=== PATIENT | female | born 1965 | race Caucasian/White ===

== ENCOUNTER 2018-02-05 15:00 | Inpatient (IN) | payer OTHER ==
[~2018-02-05] VITALS: Ht 165.1 cm; Wt 98.5 kg
--- OUTSIDE RECORDS SUMMARY | 2018-02-05 15:03 | XMS REPORT | Clinical Summary ---
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 Disp. Refills Start End Date Status Date levothyroxine (SYNTHROID, TK 1 T PO QD 3 01/08/20 Active LEVOXYL) 200 mcg tablet 17 urea (CARMOL) 40 % cream ALPA BID PRF THICK OR 5 01/23/20 Active SCALY SKIN ON FEET OR 17 HANDS ferrous sulfate 325 (65 TAKE 1 TABLET BY MOUTH Active FE) MG tablet EVERY DAY FEXOFENADINE HCL (MILLIE Take by mouth as needed. Active ORAL) CRANBERRY FRUIT Take by mouth. Active CONCENTRATE (AZO CRANBERRY ORAL) tolterodine LA (DETROL Take 1 capsule (2 mg 30 capsule 11 02/17/20 02/17/20 Active LA) 2 MG 24 hr capsule total) by mouth daily. 17 18 levoFLOXacin (LEVAQUIN) Take 1 tablet (500 mg 7 tablet 0 02/17/20 Discontin 500 MG tablet total) by mouth daily for 17 17 ued 7 days. predniSONE (DELTASONE) 20 Take 1 tablet (20 mg 6 tablet 0 02/17/20 02/20/20 mg tablet total) by mouth 2 (two) 17 17 times a day for 3 days. fluconazole (DIFLUCAN) Take 1 tablet (150 mg 2 tablet 0 02/17/20 150 MG tablet total) by mouth daily for 17 17 2 doses. cefdinir (OMNICEF) 300 MG Take 1 capsule (300 mg 20 capsule 0 03/01/20 capsule total) by mouth 2 (two) 17 17 times a day for 10 days. Active Problems Problem Noted Date Acquired hypothyroidism 03/11/2016 Adrenal adenoma 03/11/2016 Anemia 03/11/2016 Chronic kidney disease, stage I 03/11/2016 Diabetes mellitus 03/11/2016 Essential hypertension 03/11/2016 Fatigue 03/11/2016 Lupus erythematosus 03/11/2016 Urinary incontinence 03/11/2016 Bilateral lumbar radiculopathy Encounters Date Type Specialty Care Team Description 03/16/2017 Refill Internal Medicine Celso Chung MD 03/03/2017 Office Visit Orthopedic Surgery Rainer Canchola MD Acute bilateral low back pain, with sciatica presence unspecified (Primary Dx) 02/19/2017 [facility] Rainer Canchola MD Bilateral sciatica Encounter 02/19/2017 Office Visit Orthopedic Surgery Rainer Canchola MD Bilateral sciatica (Primary Dx) 02/19/2017 Refill Internal Medicine Adelina Phillips MA 02/19/2017 Procedure Pass Radiology 02/17/2017 Telephone Internal Medicine Celso Chung MD 02/16/2017 Office Visit Internal Medicine Celso Chung MD Type 2 diabetes mellitus without complication, with long-term current use of insulin (Primary Dx); Essential hypertension; Lupus erythematosus; Bilateral lumbar radiculopathy; Cough; Hypothyroidism, unspecified type; Acute sinusitis, unspecified 02/12/2017 [facility] Rainer Canchola MD Neuropathy Encounter Caio Coleman MD 02/06/2017 [facility] Rainer Canchola MD Spinal stenosis of Encounter thoracic region 02/06/2017 [facility] Rainer Canchola MD Stenosis of cervical Encounter spine 02/03/2017 Procedure Pass Radiology 02/03/2017 Procedure Pass Radiology after 02/04/2017 Family History Medical History Relation Name Comments Broken bones Father Cancer Maternal Aunt Diabetes Maternal Grandfather Rheumatologic disease Maternal Grandmother Cancer Maternal Uncle Anesthesia problems Mother Broken bones Mother Cancer Mother Rheumatologic disease Mother Cancer Paternal Aunt Rheumatologic disease Paternal Aunt Diabetes Paternal Grandfather Rheumatologic disease Sister Relation Name Status Comments Father Maternal Aunt Maternal Grandfather Maternal Grandmother Maternal Uncle Mother Paternal Aunt Paternal Aunt Paternal Grandfather Sister Social History Tobacco Use Types Packs/Day Years Used Date Never Smoker Alcohol Use Drinks/Week oz/Week Comments No Sex Assigned at Date Recorded Not on file Last Filed Vital Signs Vital Sign Reading Time Taken Blood Pressure 124/77 02/16/2017 11:11 AM CDT Pulse 76 02/16/2017 11:11 AM CDT Temperature 36.9 C (98.4 F) 02/16/2017 11:11 AM CDT Respiratory Rate 18 02/06/2017 1:04 PM CDT Oxygen Saturation 98% 02/16/2017 11:11 AM CDT Inhaled Oxygen - - Concentration Weight 91.6 kg (202 lb) 02/16/2017 11:11 AM CDT Height 165.1 cm (5' 5") 02/16/2017 11:11 AM CDT Body Mass Index 33.61 02/16/2017 11:11 AM CDT Plan of Treatment Health Maintenance Due Date Last Done Comments FOOT EXAM 1976 OPHTHALMOLOGY EXAM 1976 PAP SMEAR 1987 COLONOSCOPY 2016 MAMMOGRAM 2016 INFLUENZA VACCINE 06/23/2017 Procedures Procedure Name Priority Date/Time Associated Diagnosis Comments EMG Routine 02/12/2017 Neuropathy Results for this 12:39 PM CDT procedure are in the results section. after 02/04/2017 Results * MRI Lumbar Spine Wo Contrast (02/19/2017 12:51 PM) Specimen Performing Laboratory [address] [address] Narrative EXAMINATION:MRI LUMBAR SPINE WO CONTRAST CLINICAL HISTORY:Sciatica Order diagnosis - Sciaticaright side Sciaticaleft side COMPARISON:None. FINDINGS: Lowermost functional disc space is assumed to be L5-S1. Lumbar spine alignement is within normal limits No suspicious focal bone marrow lesions. Visualized spinal cord is normal in appearance. Mild multilevel disc space narrowing and endplate degenerative changes. L1-2: No canal or foraminal narrowing. L2-3: Posterior disc bulge and mild facet arthropathy. No canal or foraminal narrowing. L3-4: Posterior disc bulge and facet arthropathy causes mild narrowing of the left foramen. No canal narrowing. Left lateral osteophyte disc complex effaces the fat adjacent exited left L3 nerve root. L4-5: Posterior disc bulge and bilateral facet arthropathy causes mild narrowing of the left foramen. No canal narrowing. L5-S1: Right lateral disc bulge effaces the fat adjacent the exited right L5 nerve root. Bilateral facet arthropathy. There is mild narrowing of the right foramen. No canal narrowing IMPRESSION: No canal narrowing the lumbar spine. Mild multilevel spondylotic foraminal narrowing. [id number] Procedure Note Hm Interface, Radiology Results 02/19/2017 2:32 PM CDT EXAMINATION: MRI LUMBAR SPINE WO CONTRAST CLINICAL HISTORY: Sciatica Order diagnosis - Sciatica right side Sciatica left side COMPARISON: None. FINDINGS: Lowermost functional disc space is assumed to be L5-S1. Lumbar spine alignement is within normal limits No suspicious focal bone marrow lesions. Visualized spinal cord is normal in appearance. Mild multilevel disc space narrowing and endplate degenerative changes. L1-2: No canal or foraminal narrowing. L2-3: Posterior disc bulge and mild facet arthropathy. No canal or foraminal narrowing. L3-4: Posterior disc bulge and facet arthropathy causes mild narrowing of the left foramen. No canal narrowing. Left lateral osteophyte disc complex effaces the fat adjacent exited left L3 nerve root. L4-5: Posterior disc bulge and bilateral facet arthropathy causes mild narrowing of the left foramen. No canal narrowing. L5-S1: Right lateral disc bulge effaces the fat adjacent the exited right L5 nerve root. Bilateral facet arthropathy. There is mild narrowing of the right foramen. No canal narrowing IMPRESSION: No canal narrowing the lumbar spine. Mild multilevel spondylotic foraminal narrowing. [id number] * DNA (DS) Ab, crithidia, IFA w/refl (02/16/2017 12:27 PM) Component Value Ref Range DNA Ab (ds) Crithidia, NEGATIVE NEGATIVE IFA Specimen Performing Laboratory [facility] * ALMA SCREEN W IFA W REFLEX TO TITER (02/16/2017 12:27 PM) Component Value Ref Range ALMA screen POSITIVE (A) NEGATIVE Comment: ALMA IFA is a first line screen for detecting the presence of up to approximately 150 autoantibodies in various autoimmune diseases. A positive ALMA IFA result is suggestive of autoimmune disease and reflexes to titer and pattern. Further laboratory testing may be considered if clinically indicated. Visit Physician FAQs for interpretation of all antibodies in the [place], prevalence, and association with diseases at http://education.tipple.me/ faq/YTO465 ALMA pattern HOMOGENEOUS (A) Comment: Homogeneous pattern is associated with systemic lupus erythematosus (SLE), drug induced lupus and juvenile idiopathic arthritis. ALMA titer 1:320 (H) titer Comment: Reference Range <1:40 Negative 1:40-1:80 L ow Antibody Level >1:80 Elevated Antibody Level Specimen Performing Laboratory [facility] * Vitamin D 25 hydroxy level (02/16/2017 12:27 PM) Component Value Ref Range Vitamin D, 25-hydroxy 20 (L) 30 - 100 ng/mL Comment: Vitamin D Status 25-OH Vitamin D: Deficiency: <20 ng/mL Insufficiency: 20 - 29 ng/mL Optimal: > or=30 ng/mL For 25-OH Vitamin D testing on patients on D2-supplementation and patients for whom quantitation of D2 and D3 fractions is required, the QuestAssureD(TM) 25-OH VIT D, (D2,D3), LC/MS/MS is recommended: order code 55376 (patients >2yrs). For more information on this test, go to: http://education.Centice/faq/KEL274 (This link is being provided for informational/educational purposes only.) Specimen Performing Laboratory [facility] * Urinalysis, automated with microscopy (02/16/2017 12:27 PM) Component Value Ref Range Color, UA YELLOW YELLOW Appearance CLOUDY (A) CLEAR Specific gravity, urine 1.017 1.001 - 1.035 pH, urine 6.5 5.0 - 8.0 Glucose, urine NEGATIVE NEGATIVE Bilirubin, UA NEGATIVE NEGATIVE Ketones, UA NEGATIVE NEGATIVE Occult blood, urine 2+ (A) NEGATIVE Protein, UA 1+ (A) NEGATIVE Nitrite, UA NEGATIVE NEGATIVE Leukocyte esterase, UA 3+ (A) NEGATIVE WBC, UA > OR=60 (A) < OR=5 /HPF RBC, UA 0-2 < OR=2 /HPF Squamous epithelial NONE SEEN < OR=5 /HPF cells, UA Bacteria, UA NONE SEEN NONE SEEN /HPF Hyaline casts, UA NONE SEEN NONE SEEN /LPF Specimen Performing Laboratory U[facility] * Sedimentation rate (02/16/2017 12:27 PM) Component Value Ref Range Sedimentation rate 27 < OR=30 mm/h Specimen Performing Laboratory [facility] * CBC with platelet and differential (02/16/2017 12:27 PM) Component Value Ref Range WBC 11.7 (H) 3.8 - 10.8 Thousand/uL RBC 4.97 3.80 - 5.10 Million/uL HGB 12.9 11.7 - 15.5 g/dL HCT 38.7 35.0 - 45.0 % MCV 77.9 (L) 80.0 - 100.0 fL MCH 26.0 (L) 27.0 - 33.0 pg MCHC 33.4 32.0 - 36.0 g/dL RDW 17.8 (H) 11.0 - 15.0 % Platelet count 285 140 - 400 Thousand/uL MPV 8.6 7.5 - 12.5 fL Neutrophils, absolute 8,939 (H) 1,500 - 7,800 cells/uL Lymphocytes, absolute 1,942 850 - 3,900 cells/uL Monocytes, absolute 632 200 - 950 cells/uL Eosinophils, absolute 140 15 - 500 cells/uL Basophils, absolute 47 0 - 200 cells/uL Neutrophils 76.4 % Lymphocytes 16.6 % Monocytes 5.4 % Eosinophils 1.2 % Basophils + RC 0.4 % Specimen Performing Laboratory [facility] * T3, free (02/16/2017 12:27 PM) Component Value Ref Range T3, free 2.8 2.3 - 4.2 pg/mL Specimen Performing Laboratory [facility] * Thyroid stimulating hormone (02/16/2017 12:27 PM) Component Value Ref Range TSH 0.14 (L) mIU/L Comment: Reference Range > or=20 Years 0.40-4.50 Ranges First trimester 0.26-2.66 Second trimester 0.55-2.73 Third trimester 0.43-2.91 Specimen Performing Laboratory [facility] * T4, free (02/16/2017 12:27 PM) Component Value Ref Range T4, free 1.5 0.8 - 1.8 ng/dL Specimen Performing Laboratory [facility] * Hemoglobin A1c (02/16/2017 12:27 PM) Component Value Ref Range Hemoglobin A1C 6.0 (H) <5.7 % of total Hgb Comment: For someone without known diabetes, a hemoglobin A1c value between 5.7% and 6.4% is consistent with prediabetes and should be confirmed with a follow-up test. For someone with known diabetes, a value <7% indicates that their diabetes is well controlled. A1c targets should be individualized based on duration of diabetes, age, comorbid conditions, and other considerations. This assay result is consistent with an increased risk of diabetes. Currently, no consensus exists regarding use of hemoglobin A1c for diagnosis of diabetes for children. Specimen Performing Laboratory [facility] * Vitamin B12 level (02/16/2017 12:27 PM) Component Value Ref Range Vitamin B12 630 200 - 1,100 pg/mL Specimen Performing Laboratory [facility] * Lipid panel (02/16/2017 12:27 PM) Component Value Ref Range Cholesterol, total 193 125 - 200 mg/dL HDL cholesterol 33 (L) > OR=46 mg/dL Triglycerides 187 (H) <150 mg/dL LDL cholesterol 123 <130 mg/dL (calc) calculated Comment: Desirable range <100 mg/dL for patients with CHD or diabetes and <70 mg/dL for diabetic patients with known heart disease. Cholesterol/HDL ratio 5.8 (H) < OR=5.0 (calc) Non-HDL cholesterol 160 (H) mg/dL (calc) Comment: Target for non-HDL cholesterol is 30 mg/dL higher than LDL cholesterol target. Specimen Performing Laboratory [facility] * Comprehensive metabolic panel (02/16/2017 12:27 PM) Component Value Ref Range Glucose 116 (H) 65 - 99 mg/dL Comment: Fasting reference interval BUN, whole blood 12 7 - 25 mg/dL Creatinine 0.63 0.50 - 1.05 mg/dL Comment: For patients >49 years of age, the reference limit for Creatinine is approximately 13% higher for people identified as -Mauritanian. EGFR Non-Afr. Mauritanian 104 > OR=60 mL/min/1.73m2 EGFR 120 > OR=60 mL/min/1.73m2 BUN/creatinine ratio NOT APPLICABLE 6 - 22 (calc) Sodium 135 135 - 146 mmol/L Potassium 3.9 3.5 - 5.3 mmol/L Chloride 98 98 - 110 mmol/L CO2 27 20 - 31 mmol/L Calcium 9.4 8.6 - 10.4 mg/dL Protein 8.0 6.1 - 8.1 g/dL Albumin, S 4.5 3.6 - 5.1 g/dL Globulin, total 3.5 1.9 - 3.7 g/dL (calc) Albumin/globulin ratio 1.3 1.0 - 2.5 (calc) Total bilirubin 0.4 0.2 - 1.2 mg/dL Alkaline phosphatase 74 33 - 130 U/L AST 16 10 - 35 U/L ALT 19 6 - 29 U/L Specimen Performing Laboratory [facility] * EMG general request (02/12/2017 12:39 PM) Impressions Ms. Guo complains of discomfort in her lower thoracic spine, lumbar pain, numbness in her feet (left more than right) and is being evaluated for lumbar radiculopathy and neuropathy. 1) Peroneal and tibial motor latencies, amplitudes and velocities are bilaterally normal. 2) Sural sensory responses are bilaterally normal. 3) Bilateral H Reflex Responses are normal. 4) Intramuscular recordings of the legs suggest minimal chronic bilateral L5 denervation. The study suggests minimal bilateral chronic L5 radiculopathy and does not electrodiagnostically suggest neuropathy. Caio Coleman M.D. Narrative NERVE CONDUCTION AND ELECTROMYOGRAPHY REPORT [facility], [facility] Medicine [facility]-[address]; [place], [place] [address]; Name: Radha Guo Date of Procedure: February 12, 2017Location: Sex: Female Date of :67 Referring Physician: Rainer Canchola M.D. FAX: Patient is 5 5; 197 lbs; RL 30.7 C; LL 30.1 C Nerve Conduction(Latencies in msec, Amplitudes uV, Distance cm, Velocity M/Sec) Right Motor Nerves Dist. Lat. Prox lat. D. amp. P. Amp.Dist. Velocity Right Peroneal EDB 3.79.87.3 6.429.3 48.1 Right Tibial3.310.88.2 6.333.0 44.0 Right Sensory Nerves Dist. Lat. Prox lat. Dist. amp. Prox Amp. Distance Velocity Right Sural3.9 10.6 14.0 Left Motor Nerves Dist. Lat. Prox lat. D. amp. P. Amp.Dist. Velocity Left Peroneal EDB 3.810.57.9 6.031.0 46.5 Left Tibial3.39.88.5 7.032.5 50.0 Left Sensory Nerves Dist. Lat. Prox lat. Dist. amp. Prox Amp. Distance Velocity Left Sural3.9 10.6 14.0 Right Soleus (H Reflex Response Latency): 33.5 msec Left Soleus (H Reflex Response Latency):33.5 msec Electromyography (Motor Unit in mV; H=High; L=Low; P=Polyphasic; NS=Non-specific) Right LegFibs. Pos. Waves Fasc. PolyphasiaMotor Units Recruitment Vas. Medialiswnl wnlwnl wnlwnlwnl Ant. Tibialiswnl wnlwnl 20HPwnlNS Peroneus Longus wnl wnlwnl 20HPwnlNS Gastronemiuswnl wnlwnl wnlwnlwnl Ext. Dig. Brevis wnl wnlwnl 20HPwnl-1 Left LegFibs. Pos. Waves Fasc. PolyphasiaMotor Units Recruitment Vas. Medialiswnl wnlwnl wnlwnlwnl Ant. Tibialiswnl wnlwnl 20HPwnlNS Peroneus Longus wnl wnlwnl 20HPwnlNS Gastronemiuswnl wnlwnl wnlwnlwnl Ext. Dig. Brevis wnl wnlwnl 20HPwnl-1 * MRI Thoracic Spine Wo Contrast (02/06/2017 2:16 PM) Specimen Performing Laboratory [facility] [address] [place] [id number] Narrative EXAMINATION:MRI THORACIC SPINE WO CONTRAST CLINICAL HISTORY:[facility] Order diagnosis - Spinal stenosisthoracic region COMPARISON:None. FINDINGS: There are no areas of abnormal signal intensity in the cord or subarachnoid space. There is no significant canal or foramen stenosis from degenerative changes. There is mild decreased T2 signal in some of the mid thoracic discs with mild disc space narrowing. There is mild inward concavity of a few thoracic endplates. There is no evidence of acute thoracic spine fracture. The study was not performed for proper imaging of soft tissue structures in the chest, lower neck and upper abdomen. IMPRESSION: Degenerative changes without significant canal or foramen stenosis in the thoracic region. [facility]-[id number] Procedure Note Interface, Radiology Results Incoming - 02/06/2017 4:00 PM CDT EXAMINATION: MRI THORACIC SPINE WO CONTRAST CLINICAL HISTORY: [facility] Order diagnosis - Spinal stenosis thoracic region COMPARISON: None. FINDINGS: There are no areas of abnormal signal intensity in the cord or subarachnoid space. There is no significant canal or foramen stenosis from degenerative changes. There is mild decreased T2 signal in some of the mid thoracic discs with mild disc space narrowing. There is mild inward concavity of a few thoracic endplates. There is no evidence of acute thoracic spine fracture. The study was not performed for proper imaging of soft tissue structures in the chest, lower neck and upper abdomen. IMPRESSION: Degenerative changes without significant canal or foramen stenosis in the thoracic region. [facility]-[id number] * MRI Cervical Spine Wo Contrast (02/06/2017 1:55 PM) Specimen Performing Laboratory [facility] [address] [place] [address] Narrative EXAMINATION:MRI CERVICAL SPINE WO CONTRAST CLINICAL HISTORY:[facility] Order diagnosis - Spinal stenosiscervical region COMPARISON:None. FINDINGS: C1-2 and C2-3: No significant abnormality. C3-4: No significant abnormality. C4-5: There is minimal spondylosis without stenosis. C5-6: There is mild spondylosis with a broad dorsal disc bulge/protrusion greatest laterally bilaterally. There is no canal stenosis or cord compression. In fact the patient has a large cervical spinal canal. There is no foraminal stenosis. C6-7: There is minimal spondylosis and minimal central disc protrusion greater towards the right. There is no stenosis. C7-T1: No significant abnormality. There is no signal abnormality demonstrated in the spinal cord and no evidence of Chiari malformation. IMPRESSION: Mild cervical spondylosis. There is no spinal canal or foraminal stenosis. There is no evidence of a spinal cord lesion. [facility]-[id number] Procedure Note Interface, Radiology Results Incoming - 02/06/2017 3:42 PM CDT EXAMINATION: MRI CERVICAL SPINE WO CONTRAST CLINICAL HISTORY: [facility] Order diagnosis - Spinal stenosis cervical region COMPARISON: None. FINDINGS: C1-2 and C2-3: No significant abnormality. C3-4: No significant abnormality. C4-5: There is minimal spondylosis without stenosis. C5-6: There is mild spondylosis with a broad dorsal disc bulge/protrusion greatest laterally bilaterally. There is no canal stenosis or cord compression. In fact the patient has a large cervical spinal canal. There is no foraminal stenosis. C6-7: There is minimal spondylosis and minimal central disc protrusion greater towards the right. There is no stenosis. C7-T1: No significant abnormality. There is no signal abnormality demonstrated in the spinal cord and no evidence of Chiari malformation. IMPRESSION: Mild cervical spondylosis. There is no spinal canal or foraminal stenosis. There is no evidence of a spinal cord lesion. [facility]-[id number] after 02/04/2017 Insurance Payer Benefit Subscriber ID Type Phone Address Plan / Group AETNA AETNA xxxxxxxxxx HMO HMO,POS,EP [place], [place] [address]
[2018-02-05 15:55] LABS: BILIRUBIN,URINE NEGATIVE (NEGATIVE); CLARITY,URINE HAZY (CLEAR); KETONES,URINE NEGATIVE (NEGATIVE); LEUKOCYTE ESTERASE ,URINE 2+ (NEGATIVE); URINE UROBILINOGEN 0.2 mg/dL (0.2 - 1)
[2018-02-05 15:58] LABS: COLOR,URINE STRAW (YELLOW); NITRITE,URINE POSITIVE (NEGATIVE); PROTEIN,URINE DIPSTICK 1+ (NEGATIVE)
[2018-02-05 16:11] LABS: BACTERIA,URINE MANY /HPF; EPITHELIAL CELLS,URINE RARE /LPF; RBC,URINE 21-50 /HPF (0-5); YEAST,URINE FEW
[2018-02-05 16:17] LABS: BASOPHILS % 0.3 % (0.0-1.0); EOSINOPHILS # (AUTO) 0.1 (0.0-0.4); HEMATOCRIT 43.5 % (34.2-44.1); HEMOGLOBIN 15.1 g/dL (12.0-16.0); LYMPHOCYTES # (AUTO) 2.3 (1.0-3.2); LYMPHOCYTES % 18.7 % (18.0-39.1); MEAN CORPUSCULAR HEMOGLOBIN 29.3 pg (28-32); MEAN CORPUSCULAR HGB CONC 34.7 g/dL (31-35); MEAN CORPUSCULAR VOLUME 84.5 fL (81-99); MONOCYTES # (AUTO) 0.7 (0.2-0.8); MONOCYTES % 5.7 % (4.4-11.3); PLATELET COUNT 267 x10e3/uL (140-360); RED BLOOD COUNT 5.15 x10e6/uL (3.6-5.1)
[2018-02-05 16:39] LABS: ALANINE AMINOTRANSFERASE 56 IU/L (0-55); ALBUMIN 4.6 g/dL (3.5-5.0); ALBUMIN/GLOBULIN RATIO 1.1 (0.8-2.0); ALKALINE PHOSPHATASE 79 IU/L (40-150); ANION GAP 19.5 mmol/L (8-16); BLOOD UREA NITROGEN 14 mg/dL (7-26); BUN/CREATININE RATIO 17 (6-25); CALCIUM 10.4 mg/dL (8.4-10.2); CARBON DIOXIDE 27 mmol/L (22-29); CHLORIDE 95 mmol/L (98-107); CREATININE, SERUM 0.81 mg/dL (0.57-1.11); EST GLOMERULAR FILTRATION RATE > 60 ML/MIN (60-); GLUCOSE 108 mg/dL (74-118); POTASSIUM 3.5 mmol/L (3.5-5.1); SODIUM 138 mmol/L (136-145)
--- NOTE | 2018-02-05 16:58 | Diagnostic Imaging Report ---
PROCEDURE: CT ABDOMEN AND PELVIS WITHOUT CONTRAST TECHNIQUE: The abdomen and pelvis were scanned utilizing a multidetector helical scanner from the diaphragm to the lesser. No IV contrast was administered per protocol/per physician request. Coronal and sagittal multiplanar reformations were obtained. DLP: 678.66 mGy-cm COMPARISON: None available. INDICATIONS: RIGHT FLANK PAIN, HEMATURIA, HISTORY OF PARTIAL RIGHT NEPHRECTOMY FINDINGS: ABSENCE OF INTRAVENOUS CONTRAST DECREASES SENSITIVITY FOR DETECTION OF FOCAL LESIONS AND VASCULAR PATHOLOGY. LOWER THORAX: Normal. HEPATOBILIARY: Hepatic steatosis. Surgical clips abutting the right hepatic lobe. No biliary ductal dilatation. SPLEEN: No splenomegaly. PANCREAS: No focal masses or ductal dilatation. ADRENALS: No left adrenal nodule. Right adrenal is not well-visualized. KIDNEYS/URETERS: No hydronephrosis or stones. PELVIC ORGANS/BLADDER: Bladder is under distended, limiting evaluation. Uterus and adnexa are unremarkable on unenhanced CT assessment. PERITONEUM / RETROPERITONEUM: No free air or fluid. LYMPH NODES: No lymphadenopathy. Nonspecific subcentimeter retroperitoneal lymph nodes. For example a 0.9 cm retrocaval lymph node (series 3, image 53). VESSELS: Unremarkable. GI TRACT: No distention or wall thickening. Small hiatal hernia. Appendix is not visualized. BONES AND SOFT TISSUES: Unremarkable. IMPRESSION: No nephrolithiasis or evidence of obstructive urolithiasis. Dictated by: Jasson Pollock M.D. on 02/05/2018 at 16:57 Electronically approved by: Jasson Pollock M.D. on 02/05/2018 at 16:57
[2018-02-05] MEDS ORDERED: SODIUM CHLORIDE 0.9% 1000ML 1,000 ML IV STA ×2 (17:53)
[2018-02-05] MEDS ORDERED: PANTOPRAZOLE 40 MG 10ML VIAL IV STA (17:53)
[2018-02-05] MEDS ORDERED: DEXTROSE 50% SYRINGE 50 ML IV PRN ×2 (18:00)
[2018-02-05] MEDS ORDERED: CEFTRIAXONE SOD 1 GM VIAL IM ONE (18:00)
[2018-02-05] MEDS: CEFTRIAXONE SOD 1 GM VIAL IV SCH (18:20)
[2018-02-05] MEDS: SODIUM CHLORIDE 0.9% 1000ML 1,000 ML IV SCH ×2 (18:35→22:16)
[2018-02-05] MEDS ORDERED: MORPHINE SULFATE 2 MG/ML SYR IV ONE (18:45)
[2018-02-05] MEDS ORDERED: ONDANSETRON HCL INJ 2 MG/ML VIAL IV ONE (18:50)
[2018-02-05] MEDS ORDERED: INSULIN REGULAR, HUMAN 100 UNIT/1 ML 3ML VIAL SQ SCH (21:00)
[2018-02-05] MEDS: INSULIN REGULAR, HUMAN 100 UNIT/1 ML 3ML VIAL SQ SCH (21:00)
--- OUTSIDE RECORDS SUMMARY | 2018-02-05 21:39 | XMS REPORT | Clinical Summary ---
Author Author [facility] Organization [facility] Address Unknown Phone Unavailable Care Team Providers Care Assistant Oceanographer Name Role Phone Celso Chung MD PCP [...] with sciatica presence unspecified (Primary Dx) 02/19/2017 [facility] Rad[facility] Rainer Canchola MD Bilateral sciatica Encounter [...] Hypothyroidism, unspecified type; Acute sinusitis, unspecified 02/12/2017 [facility] Neurology Rainer Canchola MD Neuropathy Encounter Caio Coleman MD 02/06/2017 [facility] Rainer Canchola MD Spinal stenosis of Encounter thoracic region 02/06/2017 [facility] Rainer Canchola MD Stenosis of cervical [...] Contrast (02/19/2017 12:51 PM) Specimen Performing Laboratory [address] [address] Narrative EXAMINATION:MRI LUMBAR SPINE WO CONTRAST CLINICAL [...] lumbar spine. Mild multilevel spondylotic foraminal narrowing. [id number] Procedure Note Hm Interface, Radiology Results 02/19/2017 [...] lumbar spine. Mild multilevel spondylotic foraminal narrowing. [id number] * DNA (DS) Ab, crithidia, IFA w/refl [...] for interpretation of all antibodies in the [place], prevalence, and association with diseases at http://education.[employer]/ faq/UYQ249 ALMA pattern HOMOGENEOUS (A) Comment: Homogeneous pattern [...] D, (D2,D3), LC/MS/MS is recommended: order code 26901 (patients >2yrs). For more information on this test, go to: http://education.[employer]/faq/YZC107 (This link is being provided for informational/educational [...] approximately 13% higher for people identified as -Wallisian. EGFR Non-Afr. Wallisian 104 > OR=60 mL/min/1.73m2 EGFR 120 > [...] Narrative NERVE CONDUCTION AND ELECTROMYOGRAPHY REPORT Neurological [place], [facility] Medicine [facility]-[address]; [place], [place] [address]; Name: Radha Guo Date of Procedure: February [...] Contrast (02/06/2017 2:16 PM) Specimen Performing Laboratory [facility] [address] [place] [id number] Narrative EXAMINATION:MRI THORACIC SPINE WO CONTRAST CLINICAL HISTORY:[facility] Order diagnosis - Spinal stenosisthoracic region COMPARISON:None. [...] or foramen stenosis in the thoracic region. [facility]-[id number] Procedure Note Interface, Radiology Results Incoming - 02/06/2017 4:00 PM CDT EXAMINATION: MRI THORACIC SPINE WO CONTRAST CLINICAL HISTORY: [facility] Order diagnosis - Spinal stenosis thoracic region [...] or foramen stenosis in the thoracic region. [facility]-[id number] * MRI Cervical Spine Wo Contrast (02/06/2017 1:55 PM) Specimen Performing Laboratory [facility] [address] [place] [address] Narrative EXAMINATION:MRI CERVICAL SPINE WO CONTRAST CLINICAL HISTORY:[facility] Order diagnosis - Spinal stenosiscervical region COMPARISON:None. [...] no evidence of a spinal cord lesion. [facility]-[id number] Procedure Note Interface, Radiology Results Incoming - 02/06/2017 3:42 PM CDT EXAMINATION: MRI CERVICAL SPINE WO CONTRAST CLINICAL HISTORY: [facility] Order diagnosis - Spinal stenosis cervical region [...] no evidence of a spinal cord lesion. [facility]-[id number] after 02/04/2017 Insurance Payer Benefit Subscriber ID Type Phone Address Plan / Group AETNA AETNA xxxxxxxxxx HMO HMO,POS,EP O, [place] [address]
--- OUTSIDE RECORDS SUMMARY | 2018-02-05 21:39 | XMS REPORT ---
Author Author [facility] Address Unknown Phone Unavailable Care Team Providers Care Tire Maker Name Role Phone SUREKHA DIAZ Unavailable Unavailable Problems This patient has no known problems. Allergies, Adverse Reactions, Alerts This patient has no known allergies or adverse reactions. Medications This patient has no known medications. Results Test Description Test Time Test Comments Text Results Atomic Results Result Comments CT ABDOMEN/PELVIS WO [place] [address] Patient Name: NAVI GUO MR #: [id number] : 1965 Age/Sex: 53/F Req #: [id number] Adm Physician: Ordered by: EMILY MENARD, SUREKHA MENARD Report #: [id number] Location: ER Room/Bed: Procedure: [id number] CT/CT ABDOMEN/PELVIS WO Exam Date: 02/05/18 Exam Time: 1450 REPORT STATUS: Signed PROCEDURE: CT ABDOMEN AND PELVIS WITHOUT CONTRAST TECHNIQUE: The abdomen and pelvis were scanned utilizing a multidetector helical scanner from the diaphragm to the lesser. No IV contrast was administered per protocol/per physician request. Coronal and sagittal multiplanar reformations were obtained. DLP: 678.66 mGy-cm COMPARISON: None available. INDICATIONS: RIGHT FLANK PAIN, HEMATURIA, HISTORY OF PARTIAL RIGHT NEPHRECTOMY FINDINGS: ABSENCE OF INTRAVENOUS CONTRAST DECREASES SENSITIVITY FOR DETECTION OF FOCAL LESIONS AND VASCULAR PATHOLOGY. LOWER THORAX: Normal. HEPATOBILIARY: Hepatic steatosis. Surgical clips abutting the right hepatic lobe. No biliary ductal dilatation. SPLEEN: No splenomegaly. PANCREAS: No focal masses or ductal dilatation. ADRENALS: No left adrenal nodule. Right adrenal is not well-visualized. KIDNEYS/URETERS: No hydronephrosis or stones. PELVIC ORGANS/BLADDER: Bladder is under distended, limiting evaluation. Uterus and adnexa are unremarkable on unenhanced CT assessment. PERITONEUM / RETROPERITONEUM: No free air or fluid. LYMPH NODES: No lymphadenopathy. Nonspecific subcentimeter retroperitoneal lymph nodes. For example a 0.9 cm retrocaval lymph node (series 3, image 53). VESSELS: Unremarkable. GI TRACT: No distention or wall thickening. Small hiatal hernia. Appendix is not visualized. BONES AND SOFT TISSUES: Unremarkable. IMPRESSION: No nephrolithiasis or evidence of obstructive urolithiasis. Dictated by: Jasson Hill M.D. on 02/05/2018 at 16:57 Electronically approved by: Jasson Hill M.D. on 02/05/2018 at 16:57 Dictated By: JASSON HILL MD [id number] Transcribed By: WOLF on 02/05/18 [id number] COPY TO: SUREKHA DIAZ
[2018-02-05 22:00] VITALS: BP 167/72
[2018-02-05] MEDS: MORPHINE SULFATE 2 MG/ML SYR IV PRN (22:16)
[2018-02-05] MEDS: ONDANSETRON HCL INJ 2 MG/ML VIAL IV PRN (22:21)
[2018-02-05 22:45] VITALS: BP 167/72
[2018-02-06] VITALS: BP 128/57
[2018-02-06] MEDS: ONDANSETRON HCL INJ 2 MG/ML VIAL IV PRN ×4 (03:25→21:42)
[2018-02-06] MEDS: MORPHINE SULFATE 2 MG/ML SYR IV PRN ×4 (03:25→21:42)
[2018-02-06] MEDS ORDERED: HUMALOG100 UNIT/1 (03:58)
[2018-02-06] MEDS ORDERED: CYANOCOBALAMIN INJ (03:58)
[2018-02-06] MEDS ORDERED: MULTI-VITAMIN1 EACH (03:58)
[2018-02-06] MEDS ORDERED: FERROUS SULFAT325 MG PO (03:58)
[2018-02-06] MEDS ORDERED: LEVOTHYROXINE175 MCG PO (03:58)
[2018-02-06 04:00] VITALS: BP 125/58
[2018-02-06] MEDS ORDERED: vit D3 PO (04:02)
[2018-02-06] MEDS: CEFTRIAXONE SOD 1 GM VIAL IV SCH ×2 (05:54→16:54)
[2018-02-06] MEDS: INSULIN REGULAR, HUMAN 100 UNIT/1 ML 3ML VIAL SQ SCH ×4 (07:30→20:39)
[2018-02-06 08:00] VITALS: BP 117/58
[2018-02-06] MEDS ORDERED: FAMOTIDINE 20 MG/2 ML VIAL IV SCH (09:00)
[2018-02-06 09:19] LABS: BASOPHILS % 0.4 % (0.0-1.0); EOSINOPHILS # (AUTO) 0.2 (0.0-0.4); EOSINOPHILS % 2.4 % (0.0-6.0); HEMOGLOBIN 12.8 g/dL (12.0-16.0); LYMPHOCYTES # (AUTO) 2.4 (1.0-3.2); LYMPHOCYTES % 28.9 % (18.0-39.1); MEAN CORPUSCULAR HEMOGLOBIN 29.3 pg (28-32); MEAN CORPUSCULAR HGB CONC 34.6 g/dL (31-35); MEAN CORPUSCULAR VOLUME 84.7 fL (81-99); MONOCYTES # (AUTO) 0.6 (0.2-0.8); MONOCYTES % 6.8 % (4.4-11.3); NEUTROPHILS # (AUTO) 5.1 (2.1-6.9); PLATELET COUNT 202 x10e3/uL (140-360); RED BLOOD COUNT 4.37 x10e6/uL (3.6-5.1); RED CELL DISTRIBUTION WIDTH 13.1 % (11.7-14.4)
[2018-02-06 09:43] LABS: ALANINE AMINOTRANSFERASE 40 IU/L (0-55); ALBUMIN 3.5 g/dL (3.5-5.0); ALBUMIN/GLOBULIN RATIO 1.1 (0.8-2.0); ALKALINE PHOSPHATASE 63 IU/L (40-150); ANION GAP 11.5 mmol/L (8-16); BLOOD UREA NITROGEN 10 mg/dL (7-26); BUN/CREATININE RATIO 13 (6-25); CALCIUM 8.6 mg/dL (8.4-10.2); CARBON DIOXIDE 24 mmol/L (22-29); CHLORIDE 102 mmol/L (98-107); CREATININE, SERUM 0.77 mg/dL (0.57-1.11); EST GLOMERULAR FILTRATION RATE > 60 ML/MIN (60-); GLUCOSE 189 mg/dL (74-118); POTASSIUM 3.5 mmol/L (3.5-5.1); SODIUM 134 mmol/L (136-145)
[2018-02-06] MEDS: SODIUM CHLORIDE 0.9% 1000ML 1,000 ML IV SCH ×3 (09:55→21:20)
[2018-02-06] MEDS: FAMOTIDINE 10MG/ML 20ML VIAL IV SCH ×2 (11:00→16:54)
[2018-02-06 12:00] VITALS: BP 98/53
[2018-02-06 16:00] VITALS: BP 178/94
[2018-02-06 20:00] VITALS: BP 138/64
[2018-02-07] VITALS: BP 127/60
[2018-02-07] MEDS: MORPHINE SULFATE 2 MG/ML SYR IV PRN ×3 (03:25→19:57)
[2018-02-07 04:00] VITALS: BP 136/64
[2018-02-07] MEDS: CEFTRIAXONE SOD 1 GM VIAL IV SCH ×2 (05:50→17:01)
[2018-02-07] MEDS ORDERED: diflucan (06:57)
[2018-02-07] MEDS ORDERED: probiotic (06:57)
[2018-02-07] MEDS: INSULIN REGULAR, HUMAN 100 UNIT/1 ML 3ML VIAL SQ SCH ×4 (07:30→21:00)
[2018-02-07] MEDS: FERROUS SULFATE 325 MG TAB PO SCH (07:48)
[2018-02-07] MEDS: LEVOTHYROXINE SODIUM 100 MCG TAB PO SCH (07:48)
[2018-02-07 08:00] VITALS: BP 114/57
[2018-02-07] MEDS: FAMOTIDINE 10MG/ML 20ML VIAL IV SCH ×2 (09:00→17:01)
[2018-02-07] MEDS: SODIUM CHLORIDE 0.9% 1000ML 1,000 ML IV SCH ×2 (09:55→20:00)
[2018-02-07 10:31] LABS: BASOPHILS % 0.3 % (0.0-1.0); EOSINOPHILS # (AUTO) 0.2 (0.0-0.4); EOSINOPHILS % 3.1 % (0.0-6.0); HEMATOCRIT 35.9 % (34.2-44.1); LYMPHOCYTES # (AUTO) 2.2 (1.0-3.2); LYMPHOCYTES % 33.4 % (18.0-39.1); MEAN CORPUSCULAR HEMOGLOBIN 28.8 pg (28-32); MEAN CORPUSCULAR HGB CONC 33.4 g/dL (31-35); MEAN CORPUSCULAR VOLUME 86.3 fL (81-99); MONOCYTES # (AUTO) 0.4 (0.2-0.8); MONOCYTES % 6.8 % (4.4-11.3); NEUTROPHILS # (AUTO) 3.6 (2.1-6.9); NEUTROPHILS % 55.9 % (38.7-80.0); PLATELET COUNT 184 x10e3/uL (140-360); RED BLOOD COUNT 4.16 x10e6/uL (3.6-5.1); RED CELL DISTRIBUTION WIDTH 13.1 % (11.7-14.4)
[2018-02-07 10:40] LABS: ANION GAP 11.5 mmol/L (8-16); BLOOD UREA NITROGEN 7 mg/dL (7-26); BUN/CREATININE RATIO 9 (6-25); CALCIUM 8.8 mg/dL (8.4-10.2); CARBON DIOXIDE 26 mmol/L (22-29); CHLORIDE 105 mmol/L (98-107); CREATININE, SERUM 0.76 mg/dL (0.57-1.11); EST GLOMERULAR FILTRATION RATE > 60 ML/MIN (60-); GLUCOSE 185 mg/dL (74-118); POTASSIUM 3.5 mmol/L (3.5-5.1); SODIUM 139 mmol/L (136-145)
[2018-02-07] MEDS: ONDANSETRON HCL INJ 2 MG/ML VIAL IV PRN (10:40)
[2018-02-07 12:00] VITALS: BP 135/60
[2018-02-07 16:00] VITALS: BP 142/65
[2018-02-07] MEDS: LACTOBACILLUS ACIDOPHILUS CAPSULE PO SCH (17:01)
[2018-02-07 20:00] VITALS: BP 158/72
[2018-02-08] VITALS: BP 130/65
[2018-02-08] MEDS: SODIUM CHLORIDE 0.9% 1000ML 1,000 ML IV SCH ×3 (01:55→17:15)
[2018-02-08] MEDS: MORPHINE SULFATE 2 MG/ML SYR IV PRN ×3 (03:52→16:00)
[2018-02-08] MEDS: ONDANSETRON HCL INJ 2 MG/ML VIAL IV PRN ×4 (03:58→16:00)
[2018-02-08 04:00] VITALS: BP 128/60
[2018-02-08] MEDS: INSULIN REGULAR, HUMAN 100 UNIT/1 ML 3ML VIAL SQ SCH ×4 (07:30→20:32)
[2018-02-08] MEDS: LEVOTHYROXINE SODIUM 100 MCG TAB PO SCH (07:30)
[2018-02-08 08:00] VITALS: BP_SYST 120; BP_SYST 128; BP_DIAS 59; BP_DIAS 60
[2018-02-08] MEDS: FERROUS SULFATE 325 MG TAB PO SCH (08:46)
[2018-02-08] MEDS: LACTOBACILLUS ACIDOPHILUS CAPSULE PO SCH ×2 (08:47→16:04)
[2018-02-08] MEDS: FAMOTIDINE 10MG/ML 20ML VIAL IV SCH ×2 (09:00→16:04)
[2018-02-08 12:00] VITALS: BP 112/59
[2018-02-08] MEDS: CEFTRIAXONE SOD 1 GM VIAL IV SCH (17:15)
[2018-02-08] MEDS: FLUCONAZOLE 100 MG TAB PO SCH (18:42)
[2018-02-08 20:25] VITALS: BP 173/72
[2018-02-08 20:46] VITALS: BP 173/72
[2018-02-08] MEDS ORDERED: TEMAZEPAM 15 MG CAP PO PRN (21:00)
[2018-02-08] MEDS: ACETAMINOPHEN/CODEINE 300MG - 30MG TAB PO PRN (23:56)
[2018-02-09 01:17] VITALS: BP 148/77
[2018-02-09 05:03] VITALS: BP 137/63
[2018-02-09] MEDS: SODIUM CHLORIDE 0.9% 1000ML 1,000 ML IV SCH ×2 (05:54→09:55)
[2018-02-09] MEDS: CEFTRIAXONE SOD 1 GM VIAL IV SCH (05:54)
[2018-02-09] MEDS: ACETAMINOPHEN/CODEINE 300MG - 30MG TAB PO PRN (06:40)
[2018-02-09] MEDS: LEVOTHYROXINE SODIUM 100 MCG TAB PO SCH (07:30)
[2018-02-09] MEDS: INSULIN REGULAR, HUMAN 100 UNIT/1 ML 3ML VIAL SQ SCH ×2 (07:30→11:30)
[2018-02-09 08:00] VITALS: BP_SYST 122; BP_SYST 137; BP_DIAS 58; BP_DIAS 63
[2018-02-09] MEDS: FLUCONAZOLE 100 MG TAB PO SCH (08:57)
[2018-02-09] MEDS: FERROUS SULFATE 325 MG TAB PO SCH (08:57)
[2018-02-09] MEDS: LACTOBACILLUS ACIDOPHILUS CAPSULE PO SCH (08:57)
[2018-02-09] MEDS: FAMOTIDINE 10MG/ML 20ML VIAL IV SCH (08:57)
[2018-02-09] MEDS ORDERED: CIPRO500 MG PO (10:34)
[2018-02-09] MEDS ORDERED: DIFLUCAN200 MG PO (10:35)
[2018-02-09] MEDS ORDERED: FAMOTIDINE 20 MG TAB PO SCH (16:30)
== END 2018-02-09 11:51 | disposition home or self-care (01) | DRG 872 ==
LOC: ER 15:00 → MED/SURG2 21:34
DX: A41.9 Sepsis, unspecified organism (principal); M32.9 Systemic lupus erythematosus, unspecified; N39.0 Urinary tract infection, site not specified; E11.9 Type 2 diabetes mellitus without complications; E66.9 Obesity, unspecified; E03.9 Hypothyroidism, unspecified; B96.20 Unspecified Escherichia coli [E. coli] as the cause of diseases classified elsewhere; Z79.4 Long term (current) use of insulin; Z68.36 Body mass index [BMI] 36.0-36.9, adult
CPT/HCPCS: 36415; 74176; 80048; 80053; 81001; 82948; 85025; 87086; 87186; 99284; J0696; J2270; J2405; J7030